=== PATIENT | male | born 1985 | race Caucasian/White ===

== ENCOUNTER 2016-10-27 00:53 | Emergency (ER) | payer BC ==
[~2016-10-27] VITALS: Ht 170.2 cm; Wt 87.5 kg
[2016-10-27] MEDS ORDERED: MEDROL DOSEPAK4 MG PO (04:21)
[2016-10-27] MEDS ORDERED: TESSALON200 MG PO (04:21)
[2016-10-27] MEDS ORDERED: ZITHROMAX Z-PA250 MG PO (04:21)
[2016-10-27 04:31] VITALS: BP 128/67
== END 2016-10-27 04:32 | disposition home or self-care (01) ==
LOC: EME 00:53
DX: J18.9 Pneumonia, unspecified organism (principal); R07.81 Pleurodynia
CPT/HCPCS: 71020; 71250; 99281; 99283; J7512